=== PATIENT | female | born 1975 | race African-American/Black ===

== ENCOUNTER 2018-11-10 14:26 | Outpatient (CLI) | payer OTHER ==
--- NOTE | 2018-11-10 16:18 | MRI ---
MRI OF RIGHT SHOULDER WITHOUT CONTRAST: 11/10/18 HISTORY: S45.911D, strain of right shoulder. COMPARISON: None. FINDINGS: BICEPS TENDON: Extra-articular biceps tendon is normal. Intra-articular biceps tendon is normal. LABRUM: Subtle increased signal of the posterior superior chondrolabral junction concerning for a nondisplace d tear. ROTATOR CUFF: Intact. No full thickness perforation. Low grade bursa surface fraying of the supraspinatus tendon. MUSCLES: The muscle signal and bulk is normal. SOFT TISSUES: No significant subacromial subdeltoid bursal effusion. No significant joint effusion. IMPRESSION: Low grade increased fluid signal at the posterior superior and posterior chondrolabral junction may r eflect a nondisplaced chondrolabral tear. POS: CET
== END 2018-11-10 14:27 | disposition home or self-care (01) ==
LOC: BICMRI 14:26
PROVIDERS: ATTEND Family Medicine
DX: S46.911D Strain of unspecified muscle, fascia and tendon at shoulder and upper arm level, right arm, subsequent encounter (principal)

== ENCOUNTER 2019-03-27 05:53 | Outpatient (CLI) | payer OTHER ==
[2019-03-27 11:37] LABS: #Eosinphils 0.3 thou/uL (0.0-0.7); #Monocytes 0.4 thou/uL (0.11-0.59); #Neutrophils 3.4 thou/uL (1.40-6.50); %Basophils 0.7 % (0.0-1.0); %Eosinophils 4.9 % (0.0-10.0); %Lymphocytes 33.1 % (21.0-51.0); %Neutrophils 55.4 % (42.0-75.0); Hemoglobin 13.8 g/dL (12.0-16.0); Mean Corpuscular HGB CONC 33.8 g/dL (32.0-36.0); Mean Corpuscular Hemoglobin 30.2 pg (27.0-31.0); Mean Corpuscular Volume 89.2 fL (78.0-98.0); Mean Platelet Volume 8.4 fL (7.4-10.4); Platelet Count 204 thou/uL (130-400); RBC Distribution Width 11.7 % (11.5-14.5); Red Blood Cell (RBC) Count 4.57 mill/uL (4.20-5.40); White Blood Cell (WBC) Count 6.2 thou/uL (4.8-10.8)
[2019-03-27 13:05] LABS: Anion Gap 10 mmol/L (10-20); BUN (Urea Nitrogen) 15 mg/dL (7.0-18.7); Calc. Creatinine Clearance 0 mL/min (70-130); Calcium 9.9 mg/dL (7.8-10.44); Carbon Dioxide 30 mmol/L (22-29); Chloride 103 mmol/L (98-107); Estimated GFR-MDRD 89; Glucose 91 mg/dL (70-105); Potassium 4.2 mmol/L (3.5-5.1); Sodium 139 mmol/L (136-145)
--- NOTE | 2019-03-29 18:46 | EKG ---
Test Reason : Blood Pressure : / mmHG Vent. Rate : 059 BPM Atrial Rate : 059 BPM P-R Int : 176 ms QRS Dur : 088 ms QT Int : 414 ms P-R-T Axes : 045 049 063 degrees QTc Int : 409 ms Sinus bradycardia Otherwise normal ECG No previous ECGs available Confirmed by DR. Yoselin BLANCO ([id number]) on 03/29/2019 6:46:03 PM Referred By: IERO Confirmed By:DR. Yoselin BLANCO
== END 2019-03-27 05:54 | disposition home or self-care (01) ==
LOC: LABBT 05:53
PROVIDERS: ATTEND Orthopaedic Surgery
DX: Z01.818 Encounter for other preprocedural examination (principal); S43.401A Unspecified sprain of right shoulder joint, initial encounter
CPT/HCPCS: 80048; 85025; 93005; 93010

== ENCOUNTER 2019-03-29 06:02 | Day surgery (SDC) | payer OTHER ==
[2019-03-27 10:31] VITALS: BMI 27.4
[2019-03-29] MEDS ORDERED: Fentanyl 100 MCG/2 ML VIAL ONE (06:38)
[2019-03-29] MEDS ORDERED: Midazolam HCl 2 mg/2 ml Vial ONE (06:38)
[2019-03-29] MEDS ORDERED: Bupivacaine HCl 0.5%/Epinephrine 1:200,000/PF 30 ml Vial ONE (06:58)
[2019-03-29] MEDS ORDERED: Zolpidem Tartrate 5 MG TAB PO PRN (07:41)
[2019-03-29] MEDS ORDERED: Ropivacaine 0.2% 550 ML 550 ML NERVE BLCK SCH (07:41)
[2019-03-29] MEDS ORDERED: Ondansetron PF 4 MG/2 ML Vial IVP PRN (07:41)
[2019-03-29] MEDS ORDERED: traMADol HCl 50 MG TAB PO PRN ×2 (07:41)
[2019-03-29] MEDS ORDERED: Promethazine HCl 25 MG/ML VIAL IM PRN (07:41)
[2019-03-29] MEDS ORDERED: HYDROcodone/Acetaminophen 5/325 mg Tablet PO PRN ×2 (07:41)
[2019-03-29] MEDS ORDERED: Ropivacaine 0.2% HCl/PF (40 MG/20 ML VIAL) ONE (09:43)
[2019-03-29] MEDS ORDERED: PROPOFOL 200 MG/20 ML VIAL ONE (09:43)
[2019-03-29] MEDS ORDERED: Lidocaine 1% PF 5 ML VIAL ONE (09:43)
[2019-03-29] MEDS ORDERED: Rocuronium Bromide 10 MG/ML (10ML VIAL) ONE (09:43)
[2019-03-29] MEDS ORDERED: Dexamethasone 20 MG/5 ML VIAL ONE (09:43)
[2019-03-29] MEDS ORDERED: Ondansetron PF 4 MG/2 ML Vial ONE (09:43)
[2019-03-29] MEDS ORDERED: Ropivacaine 0.5% HCl/PF (150 MG/30 ML VIAL) ONE (09:43)
[2019-03-29] MEDS ORDERED: Glycopyrrolate 0.2 MG/ML 5 ML SYRINGE ONE (09:43)
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
[2019-03-29] MEDS ORDERED: SUGAMMADEX SODIUM 200 MG/2 ML VIAL ONE (11:59)
[2019-03-29] MEDS ORDERED: Ketorolac Tromethamine 30 MG/ML VIAL IVP SCH (12:00)
== END 2019-03-29 12:25 | disposition home or self-care (01) ==
LOC: SDC 06:02
PROVIDERS: ATTEND Orthopaedic Surgery
PROC: 0LS30ZZ Reposition Right Upper Arm Tendon, Open Approach (ICD-10-PCS; principal; 2019-03-29)
PROC: 0RBJ4ZZ Excision of Right Shoulder Joint, Percutaneous Endoscopic Approach (ICD-10-PCS; principal; 2019-03-29)
DX: S43.431A Superior glenoid labrum lesion of right shoulder, initial encounter (principal); I10 Essential (primary) hypertension; Z79.1 Long term (current) use of non-steroidal anti-inflammatories (NSAID); Z79.899 Other long term (current) drug therapy; X50.1XXA Overexertion from prolonged static or awkward postures, initial encounter; Y92.159 Unspecified place in reform school as the place of occurrence of the external cause; Y99.0 Civilian activity done for income or pay
CPT/HCPCS: A4306; C1713; J0670; J0690; J1100; J2001; J2250; J2405; J2704; J2795; J3010